=== PATIENT | female | born 1960 | race Caucasian/White ===

== ENCOUNTER → 2016-10-08 | Outpatient (REF) | payer BC ==
[2016-10-08 15:03] LABS: MICROSCOPIC INDICATED? MAN YES (NO)
[2016-10-08 15:15] LABS: RBC, URINE TNTC /hpf (0-3); SQUAMOUS EPITHELIAL CELL URINE MOD AMOUNT /hpf (SMALL AMT); WBC, URINE TNTC /hpf (0-3)
[2016-10-08 15:16] LABS: BACTERIA, URINE MOD AMOUNT; HYALINE CAST, URINE NONE SEEN /lpf (0-1); MICROSCOPIC EXAM PERFORMED
== END ==
LOC: M SFHCADAM 14:54
PROVIDERS: ATTEND Family Medicine
DX: R31.9 Hematuria, unspecified (principal)

== ENCOUNTER → 2017-10-28 | Outpatient (REF) | payer BC ==
[2017-10-28 17:42] LABS: ALBUMIN 4.4 GM/DL (3.2-5.2); ALBUMIN/GLOBULIN RATIO 1.52 (1.00-1.93); ALKALINE PHOSPHATASE 64 U/L (45-117); ALT/SGPT 24 U/L (12-78); ANION GAP 8 MEQ/L (8-16); AST/SGOT 17 U/L (7-37); BILIRUBIN,TOTAL 0.6 MG/DL (0.2-1.0); BLOOD UREA NITROGEN 12 MG/DL (7-18); CALCIUM LEVEL 8.7 MG/DL (8.5-10.1); CARBON DIOXIDE LEVEL 30 MEQ/L (21-32); CHLORIDE LEVEL 106 MEQ/L (98-107); CHOLESTEROL LEVEL 243 MG/DL (<200); CHOLESTEROL RISK RATIO 3.283 (<5); CREATININE FOR GFR 0.69 MG/DL (0.55-1.30); FREE T4 1.05 NG/DL (0.76-1.46); GLOMERULAR FILTRATION RATE > 60.0 (>51); GLUCOSE, FASTING 100 MG/DL (70-100); HDL CHOLESTEROL 74 MG/DL (>40); LDL CHOLESTEROL 153.4 MG/DL (<100); NON-HDL-C 169 MG/DL; POTASSIUM SERUM 3.9 MEQ/L (3.5-5.1); SODIUM LEVEL 144 MEQ/L (136-145); TOTAL PROTEIN 7.3 GM/DL (6.4-8.2); TRIGLYCERIDES LEVEL 78 MG/DL (<150)
== END ==
LOC: M LABDRAW1 12:15
DX: Z00.00 Encounter for general adult medical examination without abnormal findings (principal); E78.2 Mixed hyperlipidemia
CPT/HCPCS: 84443

== ENCOUNTER → 2017-11-24 | Outpatient (REF) | LOC: M WHC 13:52 | DX: Z12.31 Encounter for screening mammogram for malignant neoplasm of breast (principal); Z78.0 Asymptomatic menopausal state; Z92.0 Personal history of contraception; Z92.29 Personal history of other drug therapy ==

== ENCOUNTER → 2017-11-24 | Outpatient (REF) | payer OTHER | LOC: M SFHCPLAZ 15:54 | DX: Z00.00 Encounter for general adult medical examination without abnormal findings (principal) ==

== ENCOUNTER → 2018-11-27 | Outpatient (REF) ==
--- NOTE | 2018-11-27 10:01 | REPMRS ---
Patient History The patient states she has not had a clinical breast exam in over a year. No known family history of cancer. Took hormonal contraceptives for 30 years. Took progesterone beginning at age 52. Digital Woman Screen Mammo: November 27, 2018 - Exam #: [id number] Bilateral CC and MLO view(s) were taken. Technologist: Julissa Santos, Technologist Prior study comparison: November 24, 2017, bilateral digital woman screen mammo performed at [facility]. January 31, 2016, digital woman screen mammo performed at [facility]. March 07, 2014, digital woman screen mammo performed at [facility]. FINDINGS: The breast tissue is heterogeneously dense. This may lower the sensitivity of mammography. There is a moderate amount of heterogeneously dense fibroglandular tissue which is fairly symmetric. There is no interval development of dominant mass, architectural distortion, or grouped microcalcification typical of malignancy. There has been no change in the appearance of the mammogram from the prior studies. 3-D tomosynthesis shows no additional findings. Assessment: BI-RADS/ACR category 1 mammogram. Negative Mammogram. Recommendation Routine screening mammogram of both breasts in 1 year (for women over age 40). This patient's Lifetime Breast Cancer RIsk is estimated at 11.2 %. This mammogram was interpreted with the aid of an FDA-approved computer-aided dectection system. Electronically Signed By: Nathan López MD 11/27/18 [id number]
== END ==
LOC: M WHC 07:59
PROVIDERS: ATTEND Nurse Practitioner Family
DX: Z12.31 Encounter for screening mammogram for malignant neoplasm of breast (principal)

== ENCOUNTER 2019-06-18 16:57 | Emergency (ER) | payer BC, OTHER ==
[~2019-06-18] VITALS: Ht 162.6 cm; Wt 52.3 kg
[2019-06-18] MEDS ORDERED: NS 1,000 ML IV ONE (17:30)
[2019-06-18] MEDS ORDERED: ONDANSETRON 4MG/2ML VIAL (J2405) IV ONE (17:30)
[2019-06-18] MEDS ORDERED: GI COCKTAIL 50ML BTL(HYOSCYAMINE/MAALOX/LIDOCAINE VISCOUS)(1:3:1) PO ONE (17:30)
[2019-06-18 17:52] LABS: BASO % 0.5 % (0.0-1.0); EOS % 0.5 % (0.0-3.0); HEMATOCRIT 40.3 % (36.0-47.0); HEMOGLOBIN 12.9 g/dl (12.0-15.5); LYMPH % 4.2 % (24.0-44.0); MEAN CORPUSCULAR HEMOGLOBIN 28.5 pg (27.0-33.0); MONO # 0.1 10^3/uL (0.0-0.8); MONO % 3.4 % (0.0-5.0); NEUTROPHILS # 3.7 10^3/uL (1.5-8.5); NEUTROPHILS % 91.2 % (36.0-66.0); PLATELET COUNT, AUTOMATED 206 10^3/uL (150-450); RED BLOOD COUNT 4.53 10^6/uL (4.00-5.40); WHITE BLOOD COUNT 4.1 10^3/uL (4.0-10.0)
[2019-06-18 18:19] LABS: ALBUMIN 4.1 GM/DL (3.2-5.2); ALT/SGPT 59 U/L (12-78); BILIRUBIN,DIRECT 0.2 MG/DL (0.0-0.2); BILIRUBIN,TOTAL 0.8 MG/DL (0.2-1.0); BLOOD UREA NITROGEN 12 MG/DL (7-18); CALCIUM LEVEL 8.5 MG/DL (8.5-10.1); CARBON DIOXIDE LEVEL 30 MEQ/L (21-32); CHLORIDE LEVEL 105 MEQ/L (98-107); CK-MB VALUE MASS < 1.0 NG/ML (<3.6); CPK CREATINE PHOSPHOKINASE 108 U/L (26-192); CREATININE FOR GFR 0.68 MG/DL (0.55-1.30); GLOMERULAR FILTRATION RATE > 60.0 (>51); GLUCOSE, FASTING 122 MG/DL (70-100); LIPASE 67 U/L (73-393); MB/CK RELATIVE INDEX 0.93 (< OR =4); SODIUM LEVEL 141 MEQ/L (136-145); TOTAL PROTEIN 6.9 GM/DL (6.4-8.2); TROPONIN I < 0.02 NG/ML (< 0.10)
[2019-06-18 18:44] LABS: LYMPH # 0.2 10^3/uL (1.5-5.0)
[2019-06-18] MEDS ORDERED: ACETAMINOPHEN 500 MG TAB PO ONE (19:00)
[2019-06-18 19:49] VITALS: BP 118/57
== END 2019-06-18 20:00 | disposition home or self-care (01) ==
LOC: M ED 16:57
DX: K52.9 Noninfective gastroenteritis and colitis, unspecified (principal); Z20.828 Contact with and (suspected) exposure to other viral communicable diseases
CPT/HCPCS: 80048; 80076; 82550; 82553; 83605; 83690; 84484; 85025; 96361; 96374; 99284; J2405

== ENCOUNTER → 2020-07-12 | Outpatient (REF) ==
[2020-07-12 14:18] LABS: HEMATOCRIT 38.4 % (36.0-47.0); HEMOGLOBIN 12.1 g/dl (12.0-15.5); MEAN CORPUSCULAR HEMOGLOBIN 29.1 pg (27.0-33.0); MEAN CORPUSCULAR HGB CONC 31.5 g/dl (32.0-36.5); MEAN CORPUSCULAR VOLUME 92.3 fl (80.0-96.0); PLATELET COUNT, AUTOMATED 267 10^3/uL (150-450); RED BLOOD COUNT 4.16 10^6/uL (4.00-5.40); WHITE BLOOD COUNT 4.9 10^3/uL (4.0-10.0)
[2020-07-12 14:48] LABS: BLOOD UREA NITROGEN 11 MG/DL (7-18); CALCIUM LEVEL 9.5 MG/DL (8.5-10.1); CARBON DIOXIDE LEVEL 31 MEQ/L (21-32); CHLORIDE LEVEL 108 MEQ/L (98-107); CHOLESTEROL LEVEL 232 MG/DL (<200); CHOLESTEROL RISK RATIO 3.135 (<5); CREATININE FOR GFR 0.63 MG/DL (0.55-1.30); GLOMERULAR FILTRATION RATE > 60.0 (>51); GLUCOSE, FASTING 100 MG/DL (70-100); HDL CHOLESTEROL 74 MG/DL (>40); LDL CHOLESTEROL 142 MG/DL (<100); NON-HDL-C 158 MG/DL; POTASSIUM SERUM 4.6 MEQ/L (3.5-5.1); SODIUM LEVEL 142 MEQ/L (136-145); TRIGLYCERIDES LEVEL 82 MG/DL (<150)
== END ==
LOC: M PLALAB 10:09
PROVIDERS: ATTEND Nurse Practitioner Adult Health
DX: Z00.00 Encounter for general adult medical examination without abnormal findings (principal)

== ENCOUNTER → 2020-07-26 | Outpatient (CLI) | payer OTHER ==
--- NOTE | 2020-07-26 08:45 | REPMRS ---
Patient History The patient states she has not had a clinical breast exam in over a year. Patient is postmenopausal. No known family history of cancer. Took hormonal contraceptives for 30 years. Took progesterone beginning at age 52. Digital Woman Screen Mammo: July 26, 2020 - Exam #: [id number] Bilateral CC and MLO view(s) were taken. Technologist: Loreta Lee Technologist Prior study comparison: November 27, 2018, bilateral digital woman screen mammo performed at [facility]. November 24, 2017, bilateral digital woman screen mammo performed at [facility]. January 31, 2016, digital woman screen mammo performed at [facility]. FINDINGS: The breast tissue is extremely dense which could obscure a lesion on mammography. The Volpara volumetric breast density category is: D. There is an extremely dense symmetrical pattern of residual fibroglandular tissue. There has been no change in the appearance of the mammogram from the previous studies. There is no interval development of dominant mass, archetectural distortion, or grouped microcalcifications suggestive of malignancy. 3-D tomosynthesis shows no additional findings. Assessment: BI-RADS/ACR category 1 mammogram. Negative Mammogram. Recommendation Routine screening mammogram of both breasts in 1 year (for women over age 40). This patient's [facility] Lifetime Breast Cancer RIsk is estimated at 10.9 %. This mammogram was interpreted with the aid of an FDA-approved computer-aided dectection system. Electronically Signed By: Nathan López MD 07/26/20 0880
== END ==
LOC: M WHC 06:59
PROVIDERS: ATTEND Nurse Practitioner Adult Health
DX: Z12.31 Encounter for screening mammogram for malignant neoplasm of breast (principal); Z78.0 Asymptomatic menopausal state; Z92.0 Personal history of contraception

== ENCOUNTER → 2021-08-22 | Outpatient (CLI) | payer OTHER | LOC: M WHC 07:17 | PROVIDERS: ATTEND Nurse Practitioner Adult Health | DX: Z12.31 Encounter for screening mammogram for malignant neoplasm of breast (principal) ==

== ENCOUNTER → 2022-08-26 | Outpatient (CLI) | payer OTHER ==
[2022-08-26 17:03] LABS: HEMATOCRIT 37.2 % (36.0-47.0); MEAN CORPUSCULAR HEMOGLOBIN 29.6 pg (27.0-33.0); MEAN CORPUSCULAR HGB CONC 32.3 g/dl (32.0-36.5); MEAN CORPUSCULAR VOLUME 91.9 fl (80.0-96.0); PLATELET COUNT, AUTOMATED 275 10^3/uL (150-450); RED BLOOD COUNT 4.05 10^6/uL (4.00-5.40)
[2022-08-26 17:28] LABS: ALBUMIN 4.2 G/DL (3.2-5.2); ALKALINE PHOSPHATASE 70 U/L (46-116); ALT/SGPT 30 U/L (7.0-40); AST/SGOT 18 U/L (<34); BILIRUBIN,TOTAL 0.6 MG/DL (0.3-1.2); BLOOD UREA NITROGEN 12 MG/DL (9-23); CARBON DIOXIDE LEVEL 33 MMOL/L (20-31); CHLORIDE LEVEL 106 MMOL/L (98-107); CHOLESTEROL LEVEL 217 MG/DL (<200); CHOLESTEROL RISK RATIO 2.93 (<5); CREATININE FOR GFR 0.62 MG/DL (0.55-1.30); GLOMERULAR FILTRATION RATE > 60.0 (>45); GLUCOSE, FASTING 98 MG/DL (74-106); LDL CHOLESTEROL 130.8 MG/DL (<100); POTASSIUM SERUM 4.5 MMOL/L (3.5-5.1); SODIUM LEVEL 141 MMOL/L (136-145); TOTAL PROTEIN 6.7 G/DL (5.7-8.2); TRIGLYCERIDES LEVEL 61 MG/DL (<150)
== END ==
LOC: M PLALAB 10:14
PROVIDERS: ATTEND Nurse Practitioner Adult Health
DX: Z00.00 Encounter for general adult medical examination without abnormal findings (principal)

== ENCOUNTER → 2022-08-26 | Outpatient (CLI) | payer OTHER | LOC: M WHC 10:29 | PROVIDERS: ATTEND Nurse Practitioner Adult Health | DX: Z12.31 Encounter for screening mammogram for malignant neoplasm of breast (principal) ==

== ENCOUNTER → 2023-08-29 | Outpatient (CLI) | payer OTHER | LOC: M WHC 10:51 | PROVIDERS: ATTEND Nurse Practitioner Adult Health | DX: Z12.31 Encounter for screening mammogram for malignant neoplasm of breast (principal) ==

== ENCOUNTER → 2024-09-06 | Outpatient (CLI) | payer OTHER | LOC: M WHC 10:03 | PROVIDERS: ATTEND Nurse Practitioner Adult Health | DX: Z12.31 Encounter for screening mammogram for malignant neoplasm of breast (principal) ==

== ENCOUNTER → 2024-09-06 | Outpatient (CLI) | payer OTHER ==
[2024-09-06 14:06] LABS: ALBUMIN 4.2 G/DL (3.2-5.2); ALKALINE PHOSPHATASE 59 U/L (35-104); ALT/SGPT 33 U/L (7.0-40); AST/SGOT 21 U/L (<34); BILIRUBIN,TOTAL 0.3 MG/DL (0.3-1.2); BLOOD UREA NITROGEN 11 MG/DL (9-23); CALCIUM LEVEL 9.4 MG/DL (8.3-10.6); CARBON DIOXIDE LEVEL 30 MMOL/L (20-31); CHLORIDE LEVEL 104 MMOL/L (98-107); CHOLESTEROL LEVEL 246 MG/DL (<200); CHOLESTEROL RISK RATIO 3.28 (<5); FREE T4 1.26 NG/DL (0.89-1.76); GLOMERULAR FILTRATION RATE > 90.0 (>45); GLUCOSE, FASTING 99 MG/DL (74-106); LDL CHOLESTEROL 160.4 MG/DL (<100); POTASSIUM SERUM 4.3 MMOL/L (3.5-5.1); SODIUM LEVEL 142 MMOL/L (136-145); THYROID STIMULATING HORMONE 1.433 uIU/ML (0.55-4.78); TOTAL PROTEIN 6.6 G/DL (5.7-8.2); TRIGLYCERIDES LEVEL 53 MG/DL (<150)
== END ==
LOC: M PLALAB 10:19
PROVIDERS: ATTEND Nurse Practitioner Adult Health
DX: Z00.00 Encounter for general adult medical examination without abnormal findings (principal)